=== PATIENT | male | born 1980 | race African-American/Black ===

== ENCOUNTER 2017-03-17 00:47 | Emergency (ER) | payer BC ==
[2017-03-17 00:54] VITALS: BP 148/86; BMI 22.8
--- NOTE | 2017-03-17 01:12 | DR.FB ---
HPI - Time Seen Time seen: 01:03 - PCP Primary Care Physician: nfd - Complaint Chief Complaint:: pt has fishhook in bottom lip - Reviewed Nurses Notes Review: Yes - Source History Provided: Patient - Mode of Arrival Mode of Arrival: Ambulatory - Location Location: Other (lower lip) - Timing Onset of Chief Complaint: 03/16/17 - Context Context: Accidental Foreign body: Speculator Removal: Was Successful - Severity Pain Severity: Mild - Associated signs and symptoms Associated sign and symptoms: Bleeding (slight) PMH - PMH Past Medical History: No Past Surgical History: No - Family History History of Family Medical Conditions: No - Social History Does any household member use tobacco: No Alcohol Use: None Do you use any recreational Drugs:: No Lives With: Family Lives Where: Home - infectious screening In the last 2 months have you had wt loss of >10#?: NO Have you had fever, night sweats or hemotysis?: No Have you traveled outside the country in the last 6 months?: No Isolation: Standard ROS - Review of Systems Constitutional: No Symptoms Reported Eyes: No Symptoms Reported ENTM: No Symptoms Reported Respiratoy: No Symptoms Reported Cardiovascular: No Symptoms Reported Gastrointestinal/Abdominal: No Symptoms Reported Genitourinary: No Symptoms Reported Neurological: No Symptoms Reported Musculoskeletal: No Symptoms Reported Integumentary: Other (fishhook in lip) Hematologic/Lymphatic: No Symptoms Reported Endocrine: No Symptoms Reported Psychiatric: No Symptoms Reported PE - Vital Signs Vitals: Temperature 98.6 F Pulse Rate 65 Respiratory Rate 18 Blood Pressure 148/86 O2 Sat by Pulse Oximetry 100 - General Limitations: No Limitations General Appearance: Alert, In No Apparent Distress - Eyes Eye exam: Normal Appearance, EOMI. negative: Scleral Icterus, Conjunctival Injection - ENT ENT Exam: Other (fishhook in lower lip) External Ear Exam: Normal External Inspection Nose Exam: Normal Nose Exam Mouth Exam: Normal Inspection Throat Exam: Normal Inspection - Neck Neck Exam: Normal Inspection, Full ROM, Trachea Midline - Respiratory Respiratory Exam: negative: Accessory Muscle Use, Respiratory Distress - Neurologic Neurological Exam: Alert, Oriented X3, CN II-XII Intact - Psychiatric Psychiatric Exam: Normal Affect - Skin Skin Exam: Normal Color. negative: Intact (fishhok in lower lip) Procedures - Procedure Comments Procedures: lip injected with 1% lidocaine, hook pushed through skin. rupal was cut off and hook removed - Diagnosis Discharge Problem: Fishing hook foreign body - Discharge Plan Condition: Stable - Follow ups/Referrals Follow ups/Referrals: [facility],None [Primary Care Provider] - 3 days - Instructions
[2017-03-17] MEDS ORDERED: KEFLEX CAP 500 MG PO ONE ×3 (01:16→01:21)
[2017-03-17] MEDS ORDERED: ULTRAM PO ONE (01:23)
[2017-03-17] MEDS ORDERED: ULTRAM ONE (01:27)
== END 2017-03-17 01:42 | disposition home or self-care (01) ==
LOC: ER 00:47
DX: S00.551A Superficial foreign body of lip, initial encounter (principal); W45.8XXA Other foreign body or object entering through skin, initial encounter; Y92.9 Unspecified place or not applicable
CPT/HCPCS: 99282